=== PATIENT | male | born 1985 | race African-American/Black ===

== ENCOUNTER 2018-09-20 16:43 | Inpatient (IN) | payer SELFPAY ==
[~2018-09-20] VITALS: Ht 172.7 cm; Wt 64.1 kg
--- NOTE | 2018-09-20 16:45 | NUR ---
This patient arrived this time. Requesting to go on a walk and voiced he had seen the [facility] and wanted to go out there. IV in place to the . No home medications to review. No allergie reported. Plan for 6 week antibiotics.
[2018-09-20 17:38] VITALS: BP 129/77; PULSE 84; TEMP 99.8
--- NOTE | 2018-09-20 19:33 | NUR ---
The patient was educated about needing assistance to walk outside alone. The patient was not happy with this plan but agreed to follow the rules until they could be reassessed. No pain or needs reported. Dr. Pratt also spoke with the patient about the plan of care. Report given to TATE Burks to resume care. The call light is in place.
--- NOTE | 2018-09-20 20:00 | NUR ---
PT A/O X4, DENIES PAIN AND DISCOMFORT. PT EXPRESSES THAT HE WANTS TO BE ABLE TO GO OUTSIDE AND REFLEX. PT ADVISED THAT HE DOES NOT WANT LOVENOX AND WILL NOT TAKE THEM, WILL DO ABX. NO NEEDS AT THIS TIME, CALL LIGHT IN REACH.
[2018-09-20 23:41] VITALS: BP 119/67; PULSE 72; TEMP 98.5
[2018-09-21 03:38] VITALS: BP 120/66; PULSE 71; TEMP 98.1
--- NOTE | 2018-09-21 05:05 | NUR ---
UNEVENTFUL NIGHT. PT HAS BEEN SLEEPING WELL, RESP EVEN AND UNLABORED WITH NO S/S OF PAIN OR DISCOMFORT. PT HAS NOT TRIED TO LEAVE HIS ROOM THIS SHIFT SO FAR. PT HAD SAID EARLIER AT BEGINNING OF THE SHIFT THAT HE WAS GOING TO WAIT A COUPLE OF DAYS TO SEE WHAT DR. PIERRE CAN DO FOR HIM ABOUT GETTING TO GO OUTSIDE. CALL LIGHT WITHIN REACH.
[2018-09-21 07:43] VITALS: BP 136/68; PULSE 86; TEMP 98.9
--- NOTE | 2018-09-21 09:37 | NUR ---
First visit from the powder shoveler. No needs right now.
--- NOTE | 2018-09-21 10:04 | NUR ---
Assessment completed, alert/oriented, vital signs stable, denies pain, heart RRR/dsital pulses are palapble, lungs CTA/ no reps.difficulty, patient asking about going outside again and leaving his room/ I explained we can talk with attending hospitalist today and go from there, he otherwise is pleasant and cooperative so far for my shift, denies other needs at [facility]
[2018-09-21 12:33] VITALS: BP 118/66; PULSE 74; TEMP 98.7
--- NOTE | 2018-09-21 15:17 | NUR ---
SW met with the patient to discuss discharge plan. The patient lives in [place] with his girlfriend, Emelia. He reports independence with ADLs and does not use any DME. The patient does not have a PCP and has not been utilizing any pharmacy prior to hospitalization. He states that he would like to be set up with a PCP is [place] upon discharge. The patient is self pay. Financial counselor, Nirali, was notified and met with the patient. Nirali completed a financial assistance application with the patient and he is pending tan. The patient does not have advanced directives and he was not interested in completing one at this time. JACKELYN addressed the patient's meth use. He states that he was seeking treatment before being hospitalized in [place]. He was at [facility] for five days before he was transferred to the hospital. He states that he has a probation and parole officer, Klaudia Ac, in [place] and that she is up-to-date with his treatment plan. He states that she will continue to follow along with him after he receives his six weeks of IV antibiotics here. SW to continue to follow to ensure a safe discharge.
[2018-09-21 17:38] VITALS: BP 119/61; PULSE 79; TEMP 98.4
[2018-09-21 20:16] VITALS: BP 132/63; PULSE 73; TEMP 98.5
--- NOTE | 2018-09-21 21:02 | NUR ---
PT IN BED TRYING TO SLEEP AT THIS TIME. PT DENIES PAIN OR DISCOMFORT. PT HAS POSITIVE ATTITUDE AND IS COOPERATIVE. PT WAS VERY HAPPY THAT HE GOT TO GO OUTSIDE WITH THE TWISTING PRESS OPERATOR THIS AFTERNOON. NO NEEDS AT THIS TIME, CALL LIGHT WITHIN REACH.
[2018-09-22 00:27] VITALS: BP 137/73; PULSE 79; TEMP 98.2
--- NOTE | 2018-09-22 02:44 | NUR ---
PT SLEEPING/RESTING WITH NO S/S OF PAIN OR DISCOMFORT NOTED, CALL LIGHT WITHIN REACH.
[2018-09-22 04:05] VITALS: BP 128/62; PULSE 76; TEMP 98.3
[2018-09-22 09:06] VITALS: BP 128/71; PULSE 78; TEMP 98.4
[2018-09-22 12:12] VITALS: BP 121/74; PULSE 70; TEMP 98.3
--- NOTE | 2018-09-22 13:02 | NUR ---
Pt escorted to courtyard and sat on bench with pt for 10min - remained with pt entire time. Pt tolerated well
[2018-09-22 16:22] VITALS: BP 138/72; PULSE 83; TEMP 98.8
[2018-09-22 19:47] VITALS: BP 116/50; PULSE 82; TEMP 98.6
--- NOTE | 2018-09-22 21:05 | NUR ---
PT IN BED RESTING, A/O X4, POSITIVE ATTITUDE AND COOPERATIVE. NO PAIN OR DISCOMFORT AND NO NEEDS AT THIS TIME, CALL LIGHT WITHIN REACH.
[2018-09-23] VITALS (7 sets, daily range): BP systolic 112–136; BP diastolic 57–78; PULSE 69–82; TEMP 98.2–98.8
--- NOTE | 2018-09-23 02:57 | NUR ---
PT SLEEPING/RESTING WITH NO S/S OF PAIN OR DISCOMFORT NOTED, CALL LIGHT WITHIN REACH.
--- NOTE | 2018-09-23 05:25 | NUR ---
IV IN LEFT FOREARM REMOVED DUE TO BEING LONGER THAN 72 HOURS, CATHETER INTACT, APPLIED PRESSURE TILL BLEEDING STOPPED, AND APPLIED PROTECTIVE DRSG. STARTED NEW 20G IV, IN LEFT FOREARM, X1 ATTEMPT, WITH NO DIFFICULTIES. PT GIVEN COFFEE REQUESTED THIS AM. DENIES PAIN OR DISCOMFORT AND IS PLEASANT AND COOPERATIVE. NO FURTHER NEEDS, CALL LIGHT WITHIN REACH.
--- NOTE | 2018-09-23 08:00 | NUR ---
Assessment complete. Pt ambulating in rm with steady gait, denies pain or needs at this time. Unremarkable assessment. Saline lock IV to left forearm without s/s of complications, wrapped at this time for pt to shower. Call light in reach.
--- NOTE | 2018-09-23 13:45 | NUR ---
Pt ambulates to [facility] accompanied by this nurse and pt's dad then back to . No further needs reported. Call light in reach.
--- NOTE | 2018-09-23 17:30 | NUR ---
Pt sitting up in bed, denies pain or needs at this time. Call light in reach.
--- NOTE | 2018-09-23 21:43 | NUR ---
PT IN BED WITH HOB FLAT. PT STILL PLEASANT AND COOPERATIVE. NO CHANGE IN ASSESSMENT. PT HAS NO NEEDS AT THIS TIME, CALL LIGHT WITHIN REACH.
[2018-09-24 03:33] VITALS: BP 119/56; PULSE 56; TEMP 98.2
--- NOTE | 2018-09-24 04:40 | NUR ---
UNEVENTFUL NIGHT, PT SLEEPING/RESTING WELL WITH NO S/S OF PAIN OR DISCOMFORT NOTED. CALL LIGHT WITHIN REACH.
--- NOTE | 2018-09-24 05:37 | NUR ---
PT AWAKE IN BED WITH HOB ELEVATED TO 60 DEGREE ANGLE, WITH NO C/O PAIN OR DISCOMFORT. WAKES UP AROUND 0500 EACH MORNING. THIS MORNING PT IS READING HIS BIBLE AND DRINKING COFFEE. NO NEEDS AT THIS TIME, CALL LIGHT WITHIN REACH.
--- NOTE | 2018-09-24 06:50 | NUR ---
Received report, patient is sitting on side of bed drinking coffee. Respirations are even and nonlabored. Denies having any pain. Is grateful for cares and thankful toward off going nurse. Call light and personal items are within reach.
[2018-09-24 07:41] VITALS: BP 127/75; PULSE 67; TEMP 98.6
[2018-09-24 12:20] VITALS: BP 111/83; PULSE 68; TEMP 98.7
[2018-09-24 15:49] VITALS: BP 120/85; PULSE 73; TEMP 98.5
--- NOTE | 2018-09-24 18:53 | NUR ---
Patient has been resting in room, no complaints or needs. Ambulatory, all items are available and within reach. Call light available.
[2018-09-24 19:31] VITALS: BP 127/64; PULSE 68; TEMP 98
--- NOTE | 2018-09-24 20:59 | NUR ---
PT IN BED WITH HOB ELEVATED AND WATCHING TV. DENIES PAIN OR DISCOMFORT AND IS VERY POSITIVE AND COOPERATIVE. NO NEEDS AT THIS TIME, CALL LIGHT WITHIN REACH.
[2018-09-24 23:50] VITALS: BP 111/67; PULSE 68; TEMP 98
--- NOTE | 2018-09-25 02:49 | NUR ---
UNEVENFUL NIGHT, PT SLEEPING/RESTING WITH NO S/S OF PAIN OR DISCOMFORT NOTED. CALL LIGHT WITHIN REACH.
[2018-09-25 04:00] VITALS: BP 135/76; PULSE 66; TEMP 98.4
--- NOTE | 2018-09-25 05:45 | NUR ---
PT SLEPT WELL DURING THE NIGHT AND AWAKENS AROUND 0500. PT REQUESTED 2 CUPS OF COFFEE WITH 10 PACKS OF SUGAR, AND TWO TOWELS. PT IS VERY PLEASANT, POSITIVE, AND COOPERATIVE. PT HAS NO FURTHER NEEDS, CALL LIGHT WITHIN REACH.
[2018-09-25 06:59] LABS: MEAN CELL VOLUME 93 fl (80.0-100.0); MEAN CORPUSCULAR HEMOGLOBIN 29 pg (27.0-31.0); MEAN CORPUSCULAR HGB CONC 31 g/dl (33.0-37.0); MEAN PLATELET VOLUME 8.9 fl (7.4-10.4); PLATELET COUNT 542 K/mm3 (130-400); RED BLOOD COUNT 3.45 M/mm3 (4.20-5.60); REDCELL DISTRIBUTION WIDTH-CV 14.6 % (11.5-14.5)
[2018-09-25 07:03] LABS: HEMATOCRIT 32.2 % (42.0-52.0)
--- NOTE | 2018-09-25 07:05 | NUR ---
Patient is awake and alert in room, denies pain. Independent in room, all items are within reach. Call light is available. States he has no needs at this time.
[2018-09-25 07:12] LABS: ALANINE AMINOTRANSFERASE < 6 U/L (21-72); ALKALINE PHOSPHATASE 113 U/L (50-136); ANION GAP 13 mmol/L (7-16); AST,SGOT 43 U/L (15-37); BILIRUBIN,TOTAL 0.4 mg/dL (0.0-1.0); BLOOD UREA NITROGEN 15 mg/dL (9-20); C-REACTIVE PROTEIN 1.5 mg/dL (0.0-0.9); CALCIUM 9.8 mg/dL (8.4-10.2); CARBON DIOXIDE 28 mmol/L (22-30); CHLORIDE 99 mmol/L (98-107); CREATININE, serum 0.66 (0.66-1.25); GLUCOSE 106 mg/dL (74-106); MAGNESIUM 1.8 mg/dL (1.6-2.3); POTASSIUM 4.2 mmol/L (3.4-5.0); SODIUM 140 mmol/L (137-145); TOTAL PROTEIN 8.8 gm/dL (6.4-8.2)
[2018-09-25 07:19] VITALS: BP 135/82; PULSE 67; TEMP 98.8
[2018-09-25 07:24] LABS: BASOPHIL 1 % (0-2); EOSINOPHIL 2 % (0-4); LYMPHOCYTE 37 % (20.0-51.0); NEUTROPHILS 57 % (42.0-75.2)
[2018-09-25 07:25] LABS: PLATELET ESTIMATE INCREASED (NORMAL)
[2018-09-25 11:37] VITALS: BP 134/85; PULSE 62; TEMP 98.6
--- NOTE | 2018-09-25 12:42 | NUR ---
Patient is requesting for IV to be restarted in a different location as his is sore. I did ask if he had been offered a PICC line and he stated he likes to be reminded of his situation. IV to be restarted prior to dose of antibiotic.
[2018-09-25 15:35] VITALS: BP 178/76; PULSE 119; TEMP 98.8
--- NOTE | 2018-09-25 18:39 | NUR ---
Patient has had an uneventful shift.
[2018-09-25 20:03] VITALS: BP 125/67; PULSE 75; TEMP 98.3
[2018-09-26 00:28] VITALS: BP 124/78; PULSE 79; TEMP 98.5
[2018-09-26 03:38] VITALS: BP 125/74; PULSE 70; TEMP 97.8
--- NOTE | 2018-09-26 06:11 | NUR ---
DISCUSSED ELEVATED PLATELET COUNT AND THE REASON THAT LOVENOX WAS ORDERED TO HELP PREVENT FORMATION OF BLOOD CLOTS WITH PATIENT. DISCUSSED RISK ASSOCIATED WITH CONTINUING TO REFUSE TO TAKE LOVENOX. PATIENT VERBALIZES UNDERSTANDING AND STATES HE WILL START TAKING LOVENOX. PATIENT DENIES NO QUESTIONS OR CONCERNS AT END OF VISIT.
--- NOTE | 2018-09-26 07:44 | NUR ---
Assessment complete.pt awake,a/ox3.breathing even and unlabored.LSCTA.pt up ad caitlyn.denies any pain or discomfort at this time.remains on antibiotics for endocarditis.pt denies any further needs at this time.will continue to monitor.call light in reach
[2018-09-26 07:54] VITALS: BP 123/78; PULSE 70; TEMP 98.3
[2018-09-26 11:36] VITALS: BP 137/88; PULSE 117; TEMP 97.8
--- NOTE | 2018-09-26 14:50 | NUR ---
JACKELYN met with the patient to check in. The patient reports that he has been doing alright. States he has been watching cartoons and has been going outside to get fresh air. The patient had no questions or concerns for SW at this time. SW to continue to follow.
[2018-09-26 16:18] VITALS: BP 121/78; PULSE 73; TEMP 98.3
--- NOTE | 2018-09-26 18:05 | NUR ---
PT HAS HAD AN UNEVNFUL DAY.AMBULATES IN HALLWAYS.PICC LINE STARTED TO BOBBY.PATENTWITH GOOD BLOOD RETURN.CONTINUES ON IV ANTIBIOTICS.NO NEEDS VOICED AT THIS TIME.CALL LIGHT IN REACH
--- NOTE | 2018-09-26 18:44 | NUR ---
REPORT GIVEN TO TATE BALDWIN.
[2018-09-26 20:20] VITALS: BP 126/61; PULSE 72; TEMP 98.3
--- NOTE | 2018-09-26 20:48 | NUR ---
ASSESSMENT COMPLETED AT THIS TIME. IV ANCEF 2 GRAMS ADMINISTERED ACCORDING TO ORDERS THROUGH RIGHT UPPER ARM SINGLE LUMEN PICC WITH NO COMPLICATIONS. PATIENT DENIES COMPLAINTS OF PAIN OR DISCOMFORT. ATTITUDE CALM AND PLEASANT. DENIES NEEDS AT END OF VISIT.
[2018-09-27] VITALS (7 sets, daily range): BP systolic 117–134; BP diastolic 68–81; PULSE 63–76; TEMP 97.6–98.8
--- NOTE | 2018-09-27 04:35 | NUR ---
PATIENT LAYING IN BED WITH EYES CLOSED. PRESENTS WITH RELAXED BODY POSTURE AND EVEN NON LABORED RESPIRATIONS. UNEVENTFUL NIGHT. NO VOICED OR OBSERVED COMPLAINTS.
--- NOTE | 2018-09-27 07:26 | NUR ---
Assessment complete.patient awake,a/ox3.denies pain or discomfort at this time.LSCTA.breathing even and unlabored.patient remains stable.Heart sounds regular.VSS.patient ambulates independently.continues on antibiotics for endocarditis.will continue to monitor.call light in reach
--- NOTE | 2018-09-27 18:48 | NUR ---
PT HAS HAD AN UNEVENFUL DAY.RESTING IN BE AT THIS TIME.REMAINS ON IV ANCEF FOR ENDOCARDITIS.WILL CONTINUE TO MONITOR.CALL LIGHT IN REACH
--- NOTE | 2018-09-27 19:24 | NUR ---
REPORT GIVEN TO TATE BALDWIN.
[2018-09-28 03:33] VITALS: BP 116/73; PULSE 62; TEMP 98.2
[2018-09-28 07:14] VITALS: BP 129/87; PULSE 66; TEMP 98.6
--- NOTE | 2018-09-28 08:46 | NUR ---
Assessment complete.patient awake,a/ox3.denies pain or discomfort at this time.breathing even and unlabored.LSCTA.PICC to BOBBY.continues to receive encef for endocarditis.patient ambulates independently.denies any needs at this time.will continue to monitor.call light in reach
[2018-09-28 13:23] VITALS: BP 137/89; PULSE 70; TEMP 98.5
--- NOTE | 2018-09-28 15:00 | NUR ---
Received report from Heidi YBARRA.
--- NOTE | 2018-09-28 15:13 | NUR ---
PT RESTING IN ROOM AT THIS TIME.IV ENCEF GIVEN.DENIES ANY NEEDS AT TIME.
--- NOTE | 2018-09-28 15:13 | NUR ---
REPORT GIVEN TO TATE BECKMAN.
[2018-09-28 16:51] VITALS: BP 141/89; PULSE 80; TEMP 99
--- NOTE | 2018-09-28 18:34 | NUR ---
Pt lying in bed, breathing even and unlabored. Denies any needs at this time.
--- NOTE | 2018-09-28 18:50 | NUR ---
Hand off report given to Kimmie YBARRA.
[2018-09-28 19:23] VITALS: BP 134/85; PULSE 73; TEMP 98.3
--- NOTE | 2018-09-28 20:53 | NUR ---
PT IN ROOM AMBULATES WITH NO DIFFICULTIES, DENIES PAIN OR DISCOMFORT, NO NEEDS CALL LIGHT WITHIN REACH.
[2018-09-28 23:38] VITALS: BP 111/72; PULSE 67; TEMP 98.1
[2018-09-29 04:05] VITALS: BP 122/74; PULSE 70; TEMP 98
--- NOTE | 2018-09-29 05:57 | NUR ---
UNEVENTFUL NIGHT FOR PT. PT SLEPT/RESTED WELL WITH NO S/S OF PAIN OR DISCOMFORT. PT WAS AWAKENED AT 0500. PT WAS GIVEN HIS 2 COFFEES AND 2 TOWELS. PT PLEASANT AND COOPERATIVE. NO NEEDS AT THIS TIME, CALL LIGHT WITHIN REACH.
[2018-09-29 07:49] VITALS: BP 118/87; PULSE 64; TEMP 99.4
--- NOTE | 2018-09-29 08:15 | NUR ---
Pt alert and oriented. Pt PICC patent no redness or infiltration noted. Pt up and ready to take shower. PT denies pain or SOB at this time. Pt has call light in reach and denies needs at this time.
[2018-09-29 11:29] VITALS: BP 148/65; PULSE 75; TEMP 98.1
--- NOTE | 2018-09-29 16:30 | NUR ---
Pt taken for walk out to courtyard without incident. Pt very pleasant. Pt denies pain or SOB. Pt back in room and denies needs at this time.
[2018-09-29 17:21] VITALS: BP 131/86; PULSE 71; TEMP 99.2
--- NOTE | 2018-09-29 19:38 | NUR ---
Pt resting in bed and denies needs. Pt report given to Kimmie YBARRA.
--- NOTE | 2018-09-29 20:59 | NUR ---
PT AMBULATES IN ROOM WITH NO DIFFICULTIES. PT ADVISED THAT GIRLFRIEND BROUGHT LAPTOP COMPUTER TODAY AND HE IS HAPPY. PT HAS NO C/O PAIN OR DISCOMFORT AND HAS NO NEEDS AT THIS TIME. CALL LIGHT WITHIN REACH.
[2018-09-30 01:15] VITALS: BP 142/80; PULSE 65; TEMP 97.8
[2018-09-30 04:19] VITALS: BP 119/72; PULSE 83; TEMP 98.3
--- NOTE | 2018-09-30 07:00 | NUR ---
received report from TATE Burks.
--- NOTE | 2018-09-30 07:32 | NUR ---
PT UP AT REGULAR TIME IN MORNING AND AMBULATES IN ROOM WITH NO DIFFICULTIES. PT IS PLEASANT AND COOPERATIVE. NO NEEDS AND CALL LIGHT WITHIN REACH.
--- NOTE | 2018-09-30 07:37 | NUR ---
Assessment complete.patient awake,alert and oriented x3.pleasant and cooperative.LSCTA.breathing even and unlabored.PICC to BOBBY patent and has good blood return.patient denies any pain or discomfort at this time.will continue to monitor.call light in reach
[2018-09-30 08:30] VITALS: BP 134/84; PULSE 76; TEMP 98.4
[2018-09-30 11:25] VITALS: BP 130/74; PULSE 71; TEMP 98.6
[2018-09-30 15:09] VITALS: BP 138/84; PULSE 70; TEMP 99.2
--- NOTE | 2018-09-30 18:36 | NUR ---
PT HAS HAD AN UNEVENFUL DAY.PT PLEASANT AND COPERATIVE.STAFF TOOK PT OUT X2.IV ENCEF GIVEN.PICC REMAINS PATENT.NO OTHER NEEDS VOICED.
--- NOTE | 2018-09-30 19:10 | NUR ---
report given to caridad Burks.
[2018-09-30 20:12] VITALS: BP 121/65; PULSE 61; TEMP 98.4
--- NOTE | 2018-09-30 21:30 | NUR ---
PT RESTING IN BED WITH HOB ELEVATED AT 15 DEGREE ANGLE. PT DENIES PAIN OR DISCOMFORT, NO NEEDS CALL LIGHT WITHIN REACH.
[2018-10-01] VITALS (7 sets, daily range): BP systolic 117–149; BP diastolic 70–91; PULSE 66–78; TEMP 97.8–98.4
--- NOTE | 2018-10-01 02:27 | NUR ---
PT SLEEPING/RESTING WITH HOB DOWN, NO S/S OF PAIN OR DISCOMFORT NOTED. CALL LIGHT WITHIN REACH.
--- NOTE | 2018-10-01 06:18 | NUR ---
UNEVENTFUL NIGHT, PT STATED THAT HE SLEPT WELL DURING THE NIGHT AND THAT HE IS HAPPY TO BE ALIVE. NO C/O PAIN OR DISCOMFORT AND NO NEEDS AT THIS TIME, CALL LIGHT WITHIN REACH.
--- NOTE | 2018-10-01 17:43 | NUR ---
PT HAD UNEVENTFUL DAY. RECIEVED IV ABX SCEDULED. NO C/O PAIN, OR NOTED N/V/D. HAS BEEN PLEASENT AND COOPERATIVE WITH CARES. HASNT HAD CONSERS OR ISSUES VOICED THIS SHIFT.
--- NOTE | 2018-10-01 21:15 | NUR ---
PT A/O X4, LAYING IN BED WITH HOB AT 30 DEGREE ANGLE. PT DENIES PAIN OR DISCOMFORT AND NO NEEDS, CALL LIGHT WITHIN REACH.
--- NOTE | 2018-10-02 03:15 | NUR ---
PT SLEEPING/RESTING WITH BED FLAT, NO S/S OF PAIN OR DISCOMFORT NOTED, RESP EVEN AND UNLABORED, CALL LIGHT WITHIN REACH.
[2018-10-02 04:09] VITALS: BP 109/79; PULSE 66; TEMP 97.8
--- NOTE | 2018-10-02 05:43 | NUR ---
UNEVENTFUL NIGHT FOR PT. PT HAS GOTTEN UP AFTER 0400 VITAL SIGNS. PT A/O X4, WITH NO C/O PAIN OR DISCOMFORT. GAVE MORNING COFFEE AND PT IS SITTING UP IN BED WATCHING TV. NO NEEDS AT THIS TIME, CALL LIGHT WITHIN REACH.
[2018-10-02 05:47] LABS: BASO # 0.1 (0.0-0.2); BASO % 2.4 % (0.0-2.0); EOS # 0.1 (0.0-0.7); GRAN # 1.6 (1.4-6.5); GRAN % 42.6 % (42.2-75.2); HEMOGLOBIN 10.8 g/dl (13.5-18.0); LYMPH # 1.5 (1.2-3.4); LYMPH % 41.7 % (20.0-51.0); MEAN CELL VOLUME 93 fl (80.0-100.0); MEAN CORPUSCULAR HEMOGLOBIN 29 pg (27.0-31.0); MEAN CORPUSCULAR HGB CONC 31 g/dl (33.0-37.0); MEAN PLATELET VOLUME 9.9 fl (7.4-10.4); MONO # 0.4 (0.1-0.6); MONO % 9.8 % (1.7-9.3); PLATELET COUNT 320 K/mm3 (130-400); RED BLOOD COUNT 3.75 M/mm3 (4.20-5.60); REDCELL DISTRIBUTION WIDTH-CV 14.4 % (11.5-14.5)
[2018-10-02 05:55] LABS: ALBUMIN 3.9 gm/dL (3.5-5.0); BILIRUBIN,TOTAL 0.3 mg/dL (0.0-1.0); C-REACTIVE PROTEIN 0.7 mg/dL (0.0-0.9); CALCIUM 9.7 mg/dL (8.4-10.2); CREATININE, serum 0.67 (0.66-1.25); POTASSIUM 4.3 mmol/L (3.4-5.0); TOTAL PROTEIN 8.3 gm/dL (6.4-8.2)
[2018-10-02 06:06] LABS: HEMATOCRIT 34.9 % (42.0-52.0)
[2018-10-02 06:33] LABS: ERYTHROCYTE SEDIMENTATION RATE 50 mm/hr (0-15)
[2018-10-02 08:14] VITALS: BP 152/88; PULSE 80; TEMP 98.4
--- NOTE | 2018-10-02 08:25 | NUR ---
Pt assessment complete. Pt is up walking independently in room. He denies any pain at this time. No SOB. Pt denies N/V. Just finished with his shower. PICC line wrapped pt denies no needs at this time. Call light within reach. Will continue to monitor.
--- NOTE | 2018-10-02 08:45 | NUR ---
PICC intact right upper arm. Patient reports dressing became wet when he showered. Dressing intact site. Outer edges of dressing nonintact. With sterile technique right upper arm PICC dressing changes done with insertion site cleansed with ChloraPrep 1, chlorhexidine impregnated disc applied, skin prep, StatLock, and Tegaderm applied. Scant amount of light yellow drainage noted at site. No further drainage noted after dressing change done. No other concerns voiced. Arm wrapped with Waqar to protect catheter.
[2018-10-02 13:26] VITALS: BP 129/85; PULSE 67; TEMP 98.6
--- NOTE | 2018-10-02 19:39 | NUR ---
Shift assessment complete. Pt resting in bedside recliner, awake, a&o, cooperative c cares. Pt denies fletcher or any other c/o. PICC noted to R upper arm, patent c good blood return. Pt denies needs. Call light in reach, will monitor.
[2018-10-02 20:52] VITALS: BP 142/80; PULSE 71; TEMP 97.9
--- NOTE | 2018-10-03 08:23 | NUR ---
Up in room, just finished shower, talkative and appropriate, shift assessments complete.
[2018-10-03 08:53] VITALS: BP 139/85; PULSE 64; TEMP 98.6
[2018-10-03 16:49] VITALS: BP 139/82; PULSE 81; TEMP 98.8
--- NOTE | 2018-10-03 18:01 | NUR ---
Pt independent in the room, no C/O pain during the day.
[2018-10-03 20:17] VITALS: BP 114/79; PULSE 62; TEMP 98
--- NOTE | 2018-10-03 20:55 | NUR ---
Shift assessment complete. Pt resting in bedside recliner, awake, a&o, cooperative c cares. Pt denies pain or any other c/o. PICC noted to R upper arm, patent c good blood return. Pt denies any needs at this time. Call light in reach, will monitor.
--- NOTE | 2018-10-04 05:40 | NUR ---
Pt resting in bed, condition unchanged. Pt has rested well this shift c very few needs. Pt reports sleeping very well tonight. Denies needs at this time. Call light in reach.
--- NOTE | 2018-10-04 06:46 | NUR ---
Received report from TATE Nielsen.
--- NOTE | 2018-10-04 07:20 | NUR ---
Pt Up in room, no C/O pain at this time, waiting on breakfast, talkative and appropriate, upper arm measured, PICC flushed, shift assessment complete.
[2018-10-04 07:23] VITALS: BP 121/92; PULSE 67; TEMP 98.6
--- NOTE | 2018-10-04 17:27 | NUR ---
Pt has remained independent in the room, no C/O pain / discomfort, VS stable.
--- NOTE | 2018-10-04 20:55 | NUR ---
PT RESTING IN BED A+OX4. PICC FLUSHES WELL, BLOOD RETURN NOTED. VSS. REPROTS NO SOA. IV ANTIBIOTICS GIVEN. NO NEEDS AT THIS TIME. CALL LIGHT IN REACH
[2018-10-04 21:04] VITALS: BP 138/86; PULSE 71; TEMP 98.9
--- NOTE | 2018-10-04 22:30 | NUR ---
PT SLEEPING IN BED. REPORTS NO NEEDS
[2018-10-05 00:35] VITALS: BP 145/78; PULSE 72; TEMP 98.1
[2018-10-05 04:04] VITALS: BP 132/76; PULSE 63; TEMP 97.7
--- NOTE | 2018-10-05 04:25 | NUR ---
PT RESTING IN BED. REPORTS NO PAIN. NO NEEDS AT THIS TIME.
--- NOTE | 2018-10-05 05:28 | NUR ---
PT HAD AN UNEVENFUL NIGHT. PICC FLUSHES WELL, BLOOD RETURN NOTED. PT INDEPENDENT IN ROOM. NO NEEDS AT THIS TIME, CALL LIGHT IN REACH
--- NOTE | 2018-10-05 06:52 | NUR ---
REPORT GIVEN TO TATE CHILEL. PT REPORTS NO NEEDS
--- NOTE | 2018-10-05 07:14 | NUR ---
Report revieved from TATE Vargas.
[2018-10-05 08:02] VITALS: BP 129/88; PULSE 73; TEMP 98.2
--- NOTE | 2018-10-05 09:46 | NUR ---
Pt up in room awake and alert, talkative and appropriate, no C/O pain at this time.
--- NOTE | 2018-10-05 13:53 | NUR ---
Initial visit; Patient thanked Board Attendant for visit and offering Spiritual Care.
--- NOTE | 2018-10-05 19:05 | NUR ---
Gave report to TATE Vargas.
--- NOTE | 2018-10-05 19:06 | NUR ---
Pt has been independent in the room, VS have remained stable, no C/O pain.
[2018-10-05 20:19] VITALS: BP 134/86; PULSE 65; TEMP 98.6
--- NOTE | 2018-10-05 20:58 | NUR ---
PT RESTING IN BED A+OX4. REPORTS NO PAIN. SHIFT ASSESSMENT COMPLETE AT THIS TIME. PICC FLUSHES WELL, BLOOD RETURN NOTED. NO NEEDS AT THIS TIME. CALL LIGHT IN REACH
--- NOTE | 2018-10-06 01:33 | NUR ---
PT RESTING IN BED A+OX4. REFUSED VITALS FOR 0000 AND 0400.
--- NOTE | 2018-10-06 07:01 | NUR ---
PT HAD AN UNEVENTFUL NIGHT. REPORTED NO PAIN. PICC FLUSHES WELL, BLOOD RETURN NOTED. REFUSED VITALS AT 0000 AND 0400. NO NEEDS AT THIS TIME. REPORT GIVEN TO TATE HAYDEN
[2018-10-06 07:26] VITALS: BP 144/99; PULSE 70; TEMP 98.2
--- NOTE | 2018-10-06 10:02 | NUR ---
Assessment completed, alert/oriented, vital signs stable, denies pain or discomfort, heart RRR/distal pulses are palpable, lungs CTA/ no resp.difficulty noted, he is up ambulating the hallways , he has had breakfast and denies other needs at this time
[2018-10-06 20:00] VITALS: BP 123/80; PULSE 69; TEMP 97.9
--- NOTE | 2018-10-06 20:00 | NUR ---
PT A/O X4, PLEASANT AND COOPERATIVE, AMBULATES WITHOUT DIFFICULTIES. DENIES PAIN OR DISCOMFORT AND HAS NO NEEDS AT THIS TIME. CALL LIGHT WITHIN REACH.
--- NOTE | 2018-10-07 05:59 | NUR ---
UNEVENTFUL NIGHT. PT STATED THAT HE SLEPT VERY WELL LAST NIGHT. PT DENIES PAIN OR DISCOMFORT AND IS READY TO START THE DAY. NO NEEDS AT THIS TIME, CALL LIGHT WITHIN REACH.
--- NOTE | 2018-10-07 08:10 | NUR ---
Assessment completed, alert/oriented, vital signs stable, denies pain or discomfort, heart RRR/ distal pulses are palpable, lungs CTA/ no resp. difficulty noted, he is up ambulating the halls, has eaten breakfast, I have wrapped his PICC line and he is taking a shower at this time, dneies other needs currently
[2018-10-07 08:47] VITALS: BP 138/92; PULSE 85; TEMP 98.9
[2018-10-07 19:56] VITALS: BP 126/85; PULSE 65; TEMP 98
--- NOTE | 2018-10-07 20:49 | NUR ---
PT IN ROOM AMBULATING AND VERY PLEASANT AND COOPERATIVE. NO PAIN OR DISCOMFORT AND NO NEEDS, CALL LIGHT WITHIN REACH.
[2018-10-08 04:37] VITALS: BP 133/80; PULSE 66; TEMP 97.9
--- NOTE | 2018-10-08 07:00 | NUR ---
Pt AAOx4 on personal laptop computer. Pt states he is in a good mood. Pt smiling and laughing during assessment. Pt ambulatory in room without difficulty
[2018-10-08 08:54] VITALS: BP 135/84; PULSE 80; TEMP 98.9
--- NOTE | 2018-10-08 12:30 | NUR ---
Pt escorted outside for a walk around the campus staying on hospital property. Pt tolerated walk well
[2018-10-08 12:38] VITALS: BP 140/87; PULSE 80; TEMP 98.9
--- NOTE | 2018-10-08 13:18 | NUR ---
Pt's parents present in room for visit. Pt tolerated IV abx infusion well.
--- NOTE | 2018-10-08 19:36 | NUR ---
Shift assessment complete. Pt resting in bed, awake, a&o, cooperative c cares. Pt denies pain or any other c/o. PICC noted to R upper arm, patent. Pt s needs. Call light in reach, will monitor.
--- NOTE | 2018-10-08 19:40 | NUR ---
Shift assessment complete. Pt resting in bed, awake, a&o, cooperative c cares. Pt denies pain or any other c/o. PICC noted to R upper arm, patent, good blood return. Pt denies needs. Call light in reach, will monitor.
[2018-10-08 20:09] VITALS: BP 135/77; PULSE 62; TEMP 97.8
--- NOTE | 2018-10-09 05:19 | NUR ---
Pt resting in bed, condition unchanged. Pt has rested well this shift c very few needs. Denies needs at this time. Call light in reach.
[2018-10-09 06:00] LABS: BASO # 0.1 (0.0-0.2); BASO % 1.8 % (0.0-2.0); EOS # 0.2 (0.0-0.7); EOS % 4.5 % (0-4.0); GRAN # 1.4 (1.4-6.5); GRAN % 41.2 % (42.2-75.2); HEMOGLOBIN 11.4 g/dl (13.5-18.0); LYMPH # 1.4 (1.2-3.4); LYMPH % 41.2 % (20.0-51.0); MEAN CELL VOLUME 91 fl (80.0-100.0); MEAN CORPUSCULAR HEMOGLOBIN 29 pg (27.0-31.0); MEAN CORPUSCULAR HGB CONC 32 g/dl (33.0-37.0); MEAN PLATELET VOLUME 10.2 fl (7.4-10.4); MONO # 0.4 (0.1-0.6); MONO % 10.7 % (1.7-9.3); PLATELET COUNT 249 K/mm3 (130-400); RED BLOOD COUNT 3.94 M/mm3 (4.20-5.60); REDCELL DISTRIBUTION WIDTH-CV 13.6 % (11.5-14.5)
[2018-10-09 06:02] LABS: HEMATOCRIT 35.8 % (42.0-52.0)
[2018-10-09 06:27] LABS: ALANINE AMINOTRANSFERASE 12 U/L (21-72); ALBUMIN 3.9 gm/dL (3.5-5.0); ALKALINE PHOSPHATASE 92 U/L (50-136); ANION GAP 9 mmol/L (7-16); AST,SGOT 38 U/L (15-37); BILIRUBIN,TOTAL 0.3 mg/dL (0.0-1.0); BLOOD UREA NITROGEN 14 mg/dL (9-20); CALCIUM 9.4 mg/dL (8.4-10.2); CARBON DIOXIDE 29 mmol/L (22-30); CHLORIDE 101 mmol/L (98-107); CREATININE, serum 0.73 (0.66-1.25); GLUCOSE 119 mg/dL (74-106); POTASSIUM 4.1 mmol/L (3.4-5.0); SODIUM 139 mmol/L (137-145); TOTAL PROTEIN 7.7 gm/dL (6.4-8.2)
[2018-10-09 06:30] LABS: C-REACTIVE PROTEIN < 0.5 mg/dL (0.0-0.9)
[2018-10-09 06:56] LABS: ERYTHROCYTE SEDIMENTATION RATE 28 mm/hr (0-15)
--- NOTE | 2018-10-09 07:00 | NUR ---
Report received from TATE Nielsen. Pt sitting on bench at side of bed, ordered breafkast, denies needs, will continue to monitor.
[2018-10-09 07:47] VITALS: BP 130/83; PULSE 75; TEMP 97.8
--- NOTE | 2018-10-09 08:30 | NUR ---
Assessment charted. Pt in bed restign at side bed ready for shower and to go outside this am. Very pleasant. PICC to BOBBY has good blood return and flushes well. Deneis pain. Hoping for good results on his bloodwork today that would allow for him to go home earlier than expected, discussed that we will need to review with the physicians. Will contineu to monitor.
--- NOTE | 2018-10-09 10:03 | NUR ---
Follow-up visit; Patient friendly and enjoys talking and appears to be doing well. He thanked Auto Battery Builder for listening and caring.
--- NOTE | 2018-10-09 14:05 | NUR ---
PICC intact right upper arm. Lower edge of dressing not intact. With sterile technique right upper arm PICC dressing change done with insertion site cleansed with ChloraPrep 1, chlorhexidine impregnated disc applied, skin prep, StatLock, and Tegaderm applied. No signs or symptoms of IV complications noted. No concerns voiced. Arm wrapped with Waqar to protect catheter.
--- NOTE | 2018-10-09 17:58 | NUR ---
Pt ambulated around entire hospital several times today with staff. Doing well, very optimistic. Denies needs or pain. Eating supper at this time. Will give bedside shift report to nightshift nurse who will resume care.
[2018-10-09 19:53] VITALS: BP 132/95; PULSE 65; TEMP 98
[2018-10-10 08:14] VITALS: BP 126/98; PULSE 66; TEMP 98.5
--- NOTE | 2018-10-10 10:28 | NUR ---
Pt up indep ambulating in halls. Drinking coffee. Assessment complete. PICC line in upper R arm measured at 28cm. Denies pain. Murmur noted. Lung sounds diminished. No SOA. Denies any needs at this time.
--- NOTE | 2018-10-10 13:46 | NUR ---
Pt sits on edge of bed while Ancef 2g given over 7min. Tolerates well. Site with no s/s of infection. Rewraped with sweta. Pt up and walking. Voices no c/o.
--- NOTE | 2018-10-10 14:25 | NUR ---
SW met with patient to check in. Patient reports he is doing fine and waiting for a visiter. Patient does not have any questions or concerns for SW at this time. SW will continue to follow.
--- NOTE | 2018-10-10 18:33 | NUR ---
Pt ambulates several times in [place]. Voices no c/o pain, SOA. No change in status today. Will continue to monitor. Report given to hotel night auditor RN.
--- NOTE | 2018-10-10 19:12 | NUR ---
Assessment and notes entered by TATE Phelps reviewed and agreed by this nurse.
--- NOTE | 2018-10-10 19:25 | NUR ---
Shift assessment complete. Pt resting in bed, awake, a&o, cooperative c cares. PICC noted to R upper arm, patent c good blood return. Pt denies needs. Call light in reach, will monitor.
[2018-10-10 20:22] VITALS: BP 141/75; PULSE 62; TEMP 98.3
[2018-10-11 08:07] VITALS: BP 129/88; PULSE 73; TEMP 98.6
--- NOTE | 2018-10-11 10:12 | NUR ---
Patient is awake and alert. Has been up in [place] walking around and staff has taken patient outside for a walk. Appetite has been good. Respirations are even and non labored. Denies having any pain. Personal items and call light are within reach.
--- NOTE | 2018-10-11 18:21 | NUR ---
Patient has had an uneventful day. Has been observed walking in halls several times today. Call light and personal items are within reach.
[2018-10-11 19:19] VITALS: BP 126/73; PULSE 62; TEMP 98.1
--- NOTE | 2018-10-11 21:24 | NUR ---
PT A/O X4, AMBULATES IN ROOM, DENIES PAIN OR DISCOMFORT AND NO NEEDS AT THIS TIME, CALL LIGHT WITHIN REACH.
--- NOTE | 2018-10-12 02:16 | NUR ---
PT SLEEPING/RESTING WITH NO S/S OF PAIN OR DISCOMFORT NOTED. CALL LIGHT WITHIN REACH.
--- NOTE | 2018-10-12 06:59 | NUR ---
UNEVENTFUL NIGHT. PT SLEPT WELL WITH NO C/O PAIN OR DISCOMFORT. CALL LIGHT WITHIN REACH.
[2018-10-12 08:02] VITALS: BP 133/91; PULSE 72; TEMP 98
--- NOTE | 2018-10-12 08:22 | NUR ---
Patient is awake and alert in room. Finished breakfast. Denies pain, respirations are even and non-labored. Is independent in room and walks in [place] to get coffee. Personal items are available and call light is within reach.
--- NOTE | 2018-10-12 13:56 | NUR ---
Follow-up; Counter Waiter listened and offered encouragement to Wesley who seems to be fully engaged in his recovery.
--- NOTE | 2018-10-12 18:08 | NUR ---
Patient has been observed ambulating in hallway. Has had uneventful shift. No needs verbalized. Call light and personal items are within reach.
[2018-10-12 20:13] VITALS: BP 131/88; PULSE 63; TEMP 98.4
[2018-10-13 08:05] VITALS: BP 131/85; PULSE 64; TEMP 97.9
--- NOTE | 2018-10-13 18:14 | NUR ---
Patient has uneventful shift, just went outside for walk with staff.
[2018-10-13 18:56] VITALS: BP 122/81; PULSE 63; TEMP 98.4
[2018-10-14 07:40] VITALS: BP 155/87; PULSE 74; TEMP 98.7
--- NOTE | 2018-10-14 08:11 | NUR ---
Assessment completed, alert/oriented, vital signs stable, denies pain or discomfort, heart RRR, distal pulses are palpable, lungs CTA/ no resp.difficulty noted, he is ambulating halls independently and denies other needs at this time
[2018-10-14 19:44] VITALS: BP 129/84; PULSE 58; TEMP 98.1
[2018-10-15 08:43] VITALS: BP 137/76; PULSE 71; TEMP 98.7
--- NOTE | 2018-10-15 10:33 | NUR ---
Assessment completed, alert/oriented, vital signs stable, denies pain or discomfort, heart RRR/ distal pulses are palpable, lungs CTA, he is up independnetly and denies other needs at [facility]
[2018-10-15 19:11] VITALS: BP 131/83; PULSE 62; TEMP 98.1
--- NOTE | 2018-10-15 19:45 | NUR ---
Shift assessment complete. Pt resting in bed, awake, a&o, cooperative c cares. Pt denies pain or any other c/o. PICC noted to R arm, patent c good blood return. Pt denies any c/o or request. Call light in reach, will monitor.
[2018-10-16 05:56] LABS: BASO # 0.1 (0.0-0.2); EOS # 0.2 (0.0-0.7); EOS % 6.1 % (0-4.0); GRAN # 1.2 (1.4-6.5); GRAN % 38.8 % (42.2-75.2); HEMATOCRIT 38.4 % (42.0-52.0); HEMOGLOBIN 12.5 g/dl (13.5-18.0); LYMPH # 1.2 (1.2-3.4); LYMPH % 39.7 % (20.0-51.0); MEAN CELL VOLUME 90 fl (80.0-100.0); MEAN CORPUSCULAR HEMOGLOBIN 29 pg (27.0-31.0); MEAN CORPUSCULAR HGB CONC 33 g/dl (33.0-37.0); MEAN PLATELET VOLUME 10.3 fl (7.4-10.4); MONO # 0.4 (0.1-0.6); MONO % 13.1 % (1.7-9.3); PLATELET COUNT 220 K/mm3 (130-400); RED BLOOD COUNT 4.29 M/mm3 (4.20-5.60); REDCELL DISTRIBUTION WIDTH-CV 12.7 % (11.5-14.5)
[2018-10-16 06:08] LABS: ALANINE AMINOTRANSFERASE 14 U/L (21-72); ALBUMIN 3.9 gm/dL (3.5-5.0); ALKALINE PHOSPHATASE 87 U/L (50-136); ANION GAP 8 mmol/L (7-16); AST,SGOT 36 U/L (15-37); BILIRUBIN,TOTAL 0.4 mg/dL (0.0-1.0); BLOOD UREA NITROGEN 16 mg/dL (9-20); CALCIUM 9.4 mg/dL (8.4-10.2); CARBON DIOXIDE 28 mmol/L (22-30); CHLORIDE 102 mmol/L (98-107); CREATININE, serum 0.69 (0.66-1.25); GLUCOSE 89 mg/dL (74-106); POTASSIUM 4.1 mmol/L (3.4-5.0); SODIUM 139 mmol/L (137-145); TOTAL PROTEIN 7.7 gm/dL (6.4-8.2)
[2018-10-16 06:09] LABS: C-REACTIVE PROTEIN < 0.5 mg/dL (0.0-0.9)
[2018-10-16 07:10] LABS: ERYTHROCYTE SEDIMENTATION RATE 16 mm/hr (0-15)
[2018-10-16 08:59] VITALS: BP 145/93; PULSE 66; TEMP 98.7
--- NOTE | 2018-10-16 09:45 | NUR ---
Pt in room. denies any pain or shortness of breath. COmpleted morning assessment. Breath sounds clear. Denies any needs at this time.
--- NOTE | 2018-10-16 13:19 | NUR ---
Administered antibiotics. Denied any pain, Picc flushes easily. Will continue to monitor.
--- NOTE | 2018-10-16 13:45 | NUR ---
PICC intact right upper arm. Patient reports dressing was changed a few days ago. No chlorhexidine disc present. With sterile technique right upper arm PICC dressing change done with insertion site cleansed with ChloraPrep 1, chlorhexidine impregnated disc applied, skin prep, StatLock, and Tegaderm applied. No signs or symptoms of IV complications noted. No concerns voiced. Arm wrapped with Waqar to protect catheter.
--- NOTE | 2018-10-16 18:00 | NUR ---
Pt walking around, denies any pain. Will continue to monitor.
[2018-10-16 20:23] VITALS: BP 124/78; PULSE 64; TEMP 97.9
[2018-10-17 07:03] VITALS: BP 130/83; PULSE 62; TEMP 98.2
--- NOTE | 2018-10-17 11:58 | NUR ---
Follow up visit from the subway operator. No needs right now.
[2018-10-17 12:32] VITALS: BP 135/81; PULSE 71; TEMP 98
--- NOTE | 2018-10-17 13:00 | NUR ---
PATIENT AMBULATING HALLWAYS INDEPENDENTLY AND TOLERATING ACIVITY WELL. NO NEEDS AT THIS TIME.
--- NOTE | 2018-10-17 15:33 | NUR ---
Follow-up; Short visit with patient, wishing him a good day and God's blessings.
[2018-10-17 18:46] VITALS: BP 121/82; PULSE 77; TEMP 98.1
[2018-10-18 08:17] VITALS: BP 135/92; PULSE 72; TEMP 98.3
--- NOTE | 2018-10-18 10:20 | NUR ---
Follow-up visit; Patient doing well, counting down the days until he is discharged and can go home. Geophysical Drafter wished him well.
[2018-10-18 19:29] VITALS: BP 134/79; PULSE 65; TEMP 98.3
--- NOTE | 2018-10-19 07:40 | NUR ---
PICC line to right upper arm wrapped with plastic bag and tape for pt to shower per request. No further needs reported.
[2018-10-19 08:41] VITALS: BP 140/80; PULSE 70; TEMP 98.5
--- NOTE | 2018-10-19 08:43 | NUR ---
Assessment complete. Pt sitting up in bed following a shower, A&O x 4. Physical assessment unremarkable. PICC line to right upper arm without s/s of complications. Pt denies pain or needs at this time. Call light in reach.
--- NOTE | 2018-10-19 12:43 | NUR ---
Pt ambulating in hallway, denies pain or needs at this time.
--- NOTE | 2018-10-19 18:18 | NUR ---
Pt ambulating in room, uneventful shift. Pt denies needs at this time, call light in reach.
[2018-10-19 19:26] VITALS: BP 121/88; PULSE 63; TEMP 98.1
--- NOTE | 2018-10-19 19:30 | NUR ---
Shift assessment complete. Pt resting in bed, awake, a&o, cooperative c cares. Pt denies pain or any other c/o. PICC patent c good blood return. Pt s needs. Call light in reach, will monitor.
--- NOTE | 2018-10-20 05:24 | NUR ---
Pt resting in bed, condition unchanged. Pt has rested well this shift c very few needs. Denies needs at this time. Call light in reach.
--- NOTE | 2018-10-20 07:20 | NUR ---
Pt ambulating in room with steady gait, requested coffee which is provided. No further needs reported. Call light in reach.
[2018-10-20 08:00] VITALS: BP 140/86; PULSE 71; TEMP 98.5
--- NOTE | 2018-10-20 19:00 | NUR ---
Report to TATE Haney. Pt resting in bed, has had an uneventful shift. Call light in reach.
[2018-10-20 19:37] VITALS: BP 135/83; PULSE 57; TEMP 97.8
[2018-10-20 19:44] VITALS: BP 129/86; PULSE 83; TEMP 97.9
--- NOTE | 2018-10-20 20:37 | NUR ---
REPORT RECIEVED FROM TATE WILBURN. PT RESTING IN BED COMFORTABLY AND DENIED PAIN. CALL LIGHT IN REACH.
--- NOTE | 2018-10-20 21:59 | NUR ---
Pt's excited that he could be dc'd Tuesday. Pt denied pain. Pt asked for lakesha for sleep as he has been while he's in the hospital. CALL LIGHT IN REACH.
--- NOTE | 2018-10-20 22:43 | NUR ---
VISIT ATTEMPTED AND PT SLEEPING SOUNDLY IN BED. CALL LIGHT IN REACH.
--- NOTE | 2018-10-21 00:27 | NUR ---
Visit attempted and pt sleeping soundly in bed. Call light in reach.
--- NOTE | 2018-10-21 00:39 | NUR ---
VISIT ATTEMPTED AND PT SLEEPING SOUNDLY IN BED. CALL LIGHT IN REACH.
--- NOTE | 2018-10-21 02:48 | NUR ---
Pt sleeping soundly in bed. Call light in reach.
--- NOTE | 2018-10-21 05:20 | NUR ---
Pt awake and ready to receive antibiotics in bed. Pt denied pain and no concern. Call light in reach.
--- NOTE | 2018-10-21 07:15 | NUR ---
Report given to TATE Pearce.
--- NOTE | 2018-10-21 07:26 | NUR ---
Received report. Patient is awake, alert and independent in room. No needs are verbalized at this time.
[2018-10-21 08:20] VITALS: BP 138/85; PULSE 75; TEMP 98.5
--- NOTE | 2018-10-21 13:14 | NUR ---
JACKELYN followed up with the patient. He states that he is doing well and has only two more days left of IV antibiotics. SW to continue to follow.
--- NOTE | 2018-10-21 15:56 | NUR ---
Care resumed from [facility]. Patient denies needs. He has been up ambulating the halls.
--- NOTE | 2018-10-21 18:16 | NUR ---
Patient resting in bed. Did well with dinner. denies needs
[2018-10-21 20:00] VITALS: BP 143/98; PULSE 67; TEMP 98.1
--- NOTE | 2018-10-21 20:10 | NUR ---
Pt up ad caitlyn in room. Sits on edge of bed for antibiotic. Denies any c/o. Counting days down. Good spirits. PICC flushes without difficulty. VS monitored.
--- NOTE | 2018-10-22 07:40 | NUR ---
Pt up and about in his room, counting the hours down. Slept well with his Benadryl. Report given to TATE Pearce.
[2018-10-22 08:05] VITALS: BP 140/90; PULSE 72; TEMP 98.3
--- NOTE | 2018-10-22 08:43 | NUR ---
Patient is awake and alert in room, had breakfast. Requested PICC site to be wrapped for shower. Has been observed walking in halls. Denies having pain. All personal items and call light is within reach.
--- NOTE | 2018-10-22 18:30 | NUR ---
Patient has had no needs today. Personal items and call light are within reach.
[2018-10-22 19:11] VITALS: BP 130/91; PULSE 65; TEMP 98.2
--- NOTE | 2018-10-22 20:35 | NUR ---
Pt sitting on edge of bed with Waqar off waiting for his antibiotic. Has belongings packed and ready for discharge today.
[2018-10-23 06:05] LABS: BASO # 0.1 (0.0-0.2); BASO % 2.5 % (0.0-2.0); EOS # 0.2 (0.0-0.7); GRAN % 36.8 % (42.2-75.2); HEMATOCRIT 41.6 % (42.0-52.0); HEMOGLOBIN 13.4 g/dl (13.5-18.0); LYMPH # 1.2 (1.2-3.4); LYMPH % 41.3 % (20.0-51.0); MEAN CELL VOLUME 88 fl (80.0-100.0); MEAN CORPUSCULAR HEMOGLOBIN 28 pg (27.0-31.0); MEAN CORPUSCULAR HGB CONC 32 g/dl (33.0-37.0); MEAN PLATELET VOLUME 10.6 fl (7.4-10.4); MONO # 0.4 (0.1-0.6); MONO % 13.4 % (1.7-9.3); PLATELET COUNT 224 K/mm3 (130-400); RED BLOOD COUNT 4.73 M/mm3 (4.20-5.60); REDCELL DISTRIBUTION WIDTH-CV 12.3 % (11.5-14.5)
[2018-10-23 06:17] LABS: ALBUMIN 4.1 gm/dL (3.5-5.0); BILIRUBIN,TOTAL 0.4 mg/dL (0.0-1.0); CALCIUM 9.3 mg/dL (8.4-10.2); CREATININE, serum 0.72 (0.66-1.25); POTASSIUM 4.1 mmol/L (3.4-5.0)
[2018-10-23 07:20] VITALS: BP 142/89; PULSE 67; TEMP 98.4
--- NOTE | 2018-10-23 07:42 | NUR ---
Pt had an uneventful night. Ready to be discharged today. IV abx given at scheduled time this shift. End of shift report given to TATE Jaramillo.
[2018-10-23 08:00] LABS: ERYTHROCYTE SEDIMENTATION RATE 6 mm/hr (0-15)
--- NOTE | 2018-10-23 10:08 | NUR ---
The patient is to discharge back home today, 10/23. The patient is in need of primary care. JACKELYN followed up with the patient and discussed primary care options. The patient reports that he would like to bet set up at the [facility] in [place]. JACKELYN contacted Millie at [facility] and scheduled the patient and appointment for Tuesday, 10/30, at 1330. JACKELYN informed the patient's nurse of appointment. JACKELYN faxed the patient's medical records and discharge orders to [facility]. JACKELYN also provided the patient with [facility]'s registration packet and the patient was agreeable to the appointment. The patient had no other questions on concerns. No additional needs at this time.
--- NOTE | 2018-10-23 11:14 | NUR ---
Follow up. No needs.
--- NOTE | 2018-10-23 11:40 | NUR ---
Discharge instructions discussed with patient, insturcted to follow up with Cardiology as scheduled, explained that we have set him up with primary care at [facility] in [place], instructed to abstain from drugs/alcohol/tobacco, PICC removed by AIVS, he is ambulatory and leaving with significant other at this time
== END 2018-10-23 11:47 | disposition home or self-care (01) | DRG 307 ==
LOC: MEDICAL 16:43
PROVIDERS: Nurse Practitioner Family; Physician Assistant; ADMIT Internal Medicine
PROC: 02HV33Z Insertion of Infusion Device into Superior Vena Cava, Percutaneous Approach (ICD-10-PCS; principal; 2018-09-26)
DX: I07.9 Rheumatic tricuspid valve disease, unspecified (principal); I38 Endocarditis, valve unspecified; F15.10 Other stimulant abuse, uncomplicated; G47.00 Insomnia, unspecified; I08.1 Rheumatic disorders of both mitral and tricuspid valves
CPT/HCPCS: 99222-AI; 99231-AI; 99232-AI; 99239; C1751; J0690; J1650